=== PATIENT | male | born 1935 | race Caucasian/White ===

== ENCOUNTER 2018-09-22 01:27 | Emergency (ER) | payer MEDICARE, BC, SELFPAY ==
[2018-09-22 01:28] VITALS: BP 175/92; PULSE 91; RESP 18; TEMP 36.6; O2SAT 96; BMI 32.3
--- NOTE | 2018-09-22 01:39 | ED.RN ---
CALLED FOR EKG PER RN REQUEST, PULLED OLD EKGS FOR
--- NOTE | 2018-09-22 02:12 | RAD_ITS ---
STUDY: X-RAY CHEST REASON FOR EXAM: Male, 82 years old. Abdominal pain. TECHNIQUE: Single AP portable view of the chest. COMPARISON: September 22, 2018 FINDINGS: Cardiac monitoring leads are present. There is hyperinflation of the lungs consistent with chronic obstructive lung disease (COPD). There is no demonstrated pleural abnormality. Normal size heart. The opacity near the left cardiac silhouette at the left lung base is probably related to epicardial fat pad. Normal mediastinum and keerthi. Normal visualized pulmonary arteries. There is atherosclerotic calcification of the aortic arch with tortuosity. Normal visualized thoracic spine. Normal visualized ribs, clavicles, and shoulders. There is no demonstrated abnormality of the visualized soft tissue structures of the upper abdomen. RAD/Chest 1 View (Portable) IMPRESSION: No radiographic evidence of acute cardiopulmonary disease. Electronically Signed: Wendy Felix MD at 3:32 EST , Service support ,
--- NOTE | 2018-09-22 02:12 | EKG12_ITS ---
Test Reason : CP Blood Pressure : / mmHG Vent. Rate : 090 BPM Atrial Rate : 090 BPM P-R Int : 222 ms QRS Dur : 138 ms QT Int : 380 ms P-R-T Axes : 057 -71 059 degrees QTc Int : 464 ms Sinus rhythm with 1st degree A-V block with Premature atrial complexes Right bundle branch block Left anterior fascicular block Bifascicular block Abnormal ECG Confirmed by ANGELO TRIVEDI, KATELYN ([id number]), state editor ANTONIA GIBSON ([id number]) on 09/24/2018 9:10:38 AM Referred By: ERNIE Confirmed By:KATELYN STEPHENS MD
[2018-09-22 02:22] LABS: Absolute Lymphocyte Count 1.88 X10^3/ul (0.83-4.51); Absolute Neutrophil Count 4.5 X10^3/uL (2.0-7.7); Basophil# 0.03 X10^3/uL; Basophil% 0.4 % (0-1); Eosinophil# 0.17 X10^3/uL; Eosinophils% 2.2 % (0-5); Hematocrit 44.5 % (40-54); Hemoglobin 15.1 g/dl (13.0-16.5); Lymphocyte # 1.88 X10^3/ul (4.0); Lymphocyte % 23.9 % (19-41); Mean Corp Hgb Conc 33.9 g/gl (32-36); Mean Corpuscular Hgb 30.8 pg (27.0-32.0); Mean Corpuscular Volume 90.8 fL (80-94); Mean Platelet Vol. 10.7 fl (6.2-12.0); Monocyte# 1.24 X10^3/uL; Monocyte% 15.8 % (0-10); Neutrophil # 4.54 X10^3/uL (2.7-7.7); Neutrophil % 57.6 % (47-70); Platelet Count 259 K/mm3 (150-450); RBC Distribution Width SD 45.7 fl (35.1-43.9); White Blood Count 7.9 K/mm3 (4.4-11.0)
[2018-09-22 02:23] LABS: POSITIVE COUNT NO; POSITIVE DIFFERENTIAL NO; POSITIVE MORPHOLOGY NO
[2018-09-22] MEDS: Mag Hydrox/Al Hydrox/Simeth 30 ML UDC PO (02:32)
[2018-09-22 02:36] LABS: ALB/GLOB Ratio 1.1 RATIO (0.9-2.4); AST(SGOT) 17 U/L (15-37); Alanine Aminotransfer ALT/SGPT 25 U/L (16-61); Albumin, Serum 3.6 g/dL (3.2-5.0); Alkaline Phosphatase 104 U/L (45-117); Anion Gap 6 (5-15); BUN 18 mg/dL (7-18); BUN/Creat Ratio 13.5 RATIO (10-20); Calcium,Total 8.7 mg/dL (8.5-10.1); Chloride 107 mmol/L (98-107); Creatinine, Serum 1.33 mg/dL (0.70-1.30); EST Glomerular Filtration Rate 55 mL/min (>60); Est Glom Filt Rate - Afr Amer 66 mL/min (>60); Estimated Creatinine Clearance 40.71 ml/min; Globulin 3.4 g/dL (2.2-4.2); Glucose 123 mg/dL (74-106); Lipase 161 U/L (73-393); Sodium Level 139 mmol/L (136-145)
[2018-09-22 02:37] VITALS: BP 178/97; PULSE 89; RESP 16; O2SAT 97
[2018-09-22 03:18] VITALS: BP 138/77; PULSE 85; RESP 13; O2SAT 95
--- NOTE | 2018-09-22 04:17 | ED.DCSUM_ITS ---
History of Present Illness Chief Complaint: Abd Pain Informant: Patient, Family Onset: Today - several hrs Context: Sudden Onset - woke him up from sleep; was asymptomatic when he went to bed Timing: Continuous Quality: burning Location: epigast and lower mid-chest Current Severity: Mild Maximum Severity: Moderate Worsened by: lying down. nonexertional, nonpleuritic. Relieved by: sitting up Narrative: Patient states he has had these symptoms before, but he cannot recall when were the frequency. He denies any dyspnea, nausea/vomiting, melena, bright red blood per rectum, diarrhea. He denies any radiation of discomfort into his back, neck, arms, but does have some mild burning in his throat. He has no medical problems and takes no medications, and has not seen a doctor for several years. His daughter lives with him and was concerned about his symptoms and brought him to the emergency department tonight. He states it is not quite as bad right now, but he does still have some burning in his epigastrium. Daughter adds that he had a large banana split tonight. Past Medical History - Allergies and Home Meds Allergies/Adverse Reactions: Allergies No Known Allergies Allergy (Verified 09/22/18 01:31) Primary Care Physician: Aayush Guillen DO [Primary Care Provider] - Past Medical History: None Lives: With Family Smoking Status: Never smoker Review of Systems General: Denies: Chills, Fever, Sweats Eyes: Denies: Visual changes - bilaterally, Diplopia ENT: Denies: Sore throat Cardiovascular: Reports: Chest pain. Denies: Palpitations, Heart racing Respiratory: Denies: Dyspnea, Cough, Dyspnea on exertion Gastrointestinal: Reports: Abdominal pain. Denies: Nausea, Vomiting, Diarrhea, Melena, Hematochezia Genitourinary: Denies: Dysuria, Hematuria, Frequency Musculoskeletal: Denies: Back pain, Swelling, Extremity Pain Skin: Denies: Rash, Abscess, Wounds Neurological: Denies: Headache, Weakness, Numbness Psych: Denies: Depression, Anxiety Endocrine: Denies: Polyuria, Polydipsia Hematologic: Denies: Easy bruising, Easy bleeding Allergy: Denies: Swelling of the mouth, Swelling of the tongue Physical Exam Vital Signs/Narrative: Vital Signs Temp Pulse Resp BP Pulse Ox 09/22/18 03:18 85 13 138/77 H 95 09/22/18 02:37 89 16 178/97 H 97 09/22/18 01:28 97.9 F 91 18 175/92 H 96 Inital Vital Signs reviewed: Yes General: Well nourished, Well developed Head: Normocephalic, Atraumatic Eyes: Perrl, EOMI ENT: Moist mucous membranes, No rhinorrhea Neck: Supple, Nontender, No lymphadenopathy, No JVD Cardiovascular: Regular rate, Regular rhythm, No murmurs, Normal S1, Normal S2 Respiratory: No distress, CTA bilaterally, Chest nontender, - - No splinting on deep inspiration. Abdomen: Soft, Nondistended, Normal bowel sounds, Tender - Mild epigastrium only. Negative for: Guarding, Rebound tenderness, Schaefer's sign Back: Nontender, Normal Inspection Extremities: Nontender, No edema Skin: Normal color, No rash Neurological: Alert, Oriented x3, Cranial nerves II-XII grossly intact, Normal Strength, Normal Sensation Psychological: Normal affect Diagnostic/Tx/Re-eval Impressions Chest X-Ray 09/22/18 02:12 IMPRESSION: No radiographic evidence of acute cardiopulmonary disease. Electronically Signed: Wendy Felix MD at 3:32 EST , Service support , 09/22/18 02:12 Chest 1 View (Portable) [RAD] Stat Laboratory Results 09/22/18 09/22/18 01:38 01:38 WBC 7.9 RBC 4.90 Hgb 15.1 Hct 44.5 MCV 90.8 MCH 30.8 MCHC 33.9 RDW 14.0 RDW Differential 45.7 H Plt Count 259 MPV 10.7 Immature Gran % (Auto) 0.100 Neut % (Auto) 57.6 Lymph % (Auto) 23.9 [place] % (Auto) 15.8 H Eos % (Auto) 2.2 Baso % (Auto) 0.4 Absolute Neuts (auto) 4.5 Absolute Lymphs (auto) 1.88 Total Counted Not Reportable Sodium 139 Potassium 4.0 Chloride 107 Carbon Dioxide 26.0 Anion Gap 6 BUN 18 Creatinine 1.33 H Estim Creat Clear Calc 40.71 Est GFR (MDRD) Af Amer 66 Est GFR (MDRD) Non-Af 55 L BUN/Creatinine Ratio 13.5 Glucose 123 H Calcium 8.7 Total Bilirubin 0.30 AST 17 ALT 25 Alkaline Phosphatase 104 Troponin I < 0.015 Total Protein 7.0 Albumin 3.6 Globulin 3.4 Albumin/Globulin Ratio 1.1 Lipase 161 - Rhythm Strip Rhythm Strip: Sinus Rhythm Rate: 90 Ectopy: None - EKG Initial EKG Interpretation: Sinus Rhythm, No Acute Injury Pattern, RBBB, LAFB, AV Block - 1st deg Prior: Unchanged - Medical Decision Making Labs, chest x-ray unremarkable including negative troponin. His EKG is unchanged compared with his old showing a bifascicular block and no acute injury pattern or ectopy/dysrhythmia. Pre-existing first-degree AV block. He had some residual burning and epigastric tenderness, after a GI cocktail his discomfort is resolved. His symptoms are more consistent with reflux than angina. He does not want to stay in the hospital and wants to go home. I gave him a Protonix here and a prescription for more, and encouraged to follow-up with the PCP, or return if worse. He and daughter are comfortable with this plan. ED Disposition - Plan for ED Patient: Disposition: Home or Assisted Living Chief Complaint: Abd Pain Diagnosis: Chest pain, unspecified, Epigastric abdominal pain Instructions: ED Abdominal Pain Unkn Cause, ED GERD Prescriptions: Pantoprazole Sodium [Protonix] 40 mg PO DAILY #30 tablet Referrals: Aayush Guillen DO [Primary Care Provider] - 1 Week
[2018-09-22 04:40] VITALS: BP 139/87; PULSE 91; RESP 15; O2SAT 96
[2018-09-22] MEDS: Pantoprazole Sodium 40 MG Tablet PO (04:41)
== END 2018-09-22 04:44 | disposition home or self-care (01) ==
PROVIDERS: Emergency Provider Emergency Medicine; Family Provider Family Medicine; PCP Family Medicine
DX: R07.9 Chest pain, unspecified (principal); R10.13 Epigastric pain; I45.2 Bifascicular block
CPT/HCPCS: 71045; 80053; 83690; 84484; 85025; 93005; 99285; A4216

== ENCOUNTER 2019-10-15 15:59 | Emergency (ER) | payer MEDICARE, BC, SELFPAY ==
[2019-10-15 16:00] VITALS: BP 153/94; PULSE 88; RESP 16; TEMP 36.5; O2SAT 96; BMI 30.2
== END 2019-10-15 17:28 ==
PROVIDERS: Emergency Provider Emergency Medicine; PCP Family Medicine
DX: R10.9 Unspecified abdominal pain (principal)

== ENCOUNTER 2020-06-16 14:02 | Emergency (ER) | payer MEDICARE, BC, SELFPAY ==
[2020-06-01 14:14] VITALS: BMI 30.2
[2020-06-16 14:03] VITALS: BP 143/77; PULSE 70; RESP 17; TEMP 36.4; O2SAT 98; BMI 37.8
[2020-06-16 14:07] VITALS: BP 143/77; PULSE 70; RESP 17; TEMP 36.4; O2SAT 98
--- NOTE | 2020-06-16 14:29 | ED.VIS.GEN ---
History of Present Illness Chief Complaint: Nausea/Vomiting Informant: Patient, Family Narrative: 84-year-old male with no reported medical problems presents for evaluation. He states today in the morning he had an episode of diarrhea and had a second episode this afternoon. After the second episode of diarrhea he vomited. He states currently he has no nausea and he feels fine. He is not dizzy or lightheaded. He denies chest pain, palpitations, shortness of breath. He is not had fever, chills. He states prior to this he was eating and drinking normally. He lives with his daughter who states that he eats the same thing and there is no atypical foods. Past Medical History - Allergies and Home Meds Allergies/Adverse Reactions: Allergies No Known Allergies Allergy (Verified 06/16/20 14:08) Primary Care Physician: Aayush Guillen DO [Primary Care Provider] - Past Medical History: - - Patient denies medical problems Surgical History: noncontributory Lives: With Family Smoking Status: Unknown if ever smoked Alcohol: None Drugs: None Review of Systems General: Denies: Chills, Fever, Sweats Eyes: Denies: Visual changes - bilaterally, Diplopia ENT: Denies: Rhinorrhea, Sore throat Cardiovascular: Denies: Chest pain, Palpitations Respiratory: Denies: Dyspnea, Cough, Dyspnea on exertion Gastrointestinal: Reports: Nausea, Vomiting, Diarrhea. Denies: Abdominal pain, Constipation, Melena Genitourinary: Denies: Dysuria, Hematuria Musculoskeletal: Denies: Myalgias, Arthralgias Skin: Denies: Rash, Abrasions Neurological: Denies: Headache, Weakness, Parasthesia Physical Exam Vital Signs/Narrative: Vital Signs Temp Pulse Resp BP Pulse Ox 06/16/20 14:07 97.6 F L 70 17 143/77 H 98 06/16/20 14:03 97.6 F L 70 17 143/77 H 98 Inital Vital Signs reviewed: Yes General: Well nourished, No Acute Distress Head: Normocephalic, Atraumatic Eyes: Perrl, EOMI. Negative for: Scleral icterus ENT: Moist mucous membranes, No rhinorrhea Cardiovascular: Regular rate, Regular rhythm Respiratory: No distress, CTA bilaterally Abdomen: Soft, Nontender, Nondistended Extremities: Nontender, No edema Skin: Normal color, No rash Neurological: Alert, Oriented x3 Psychological: Normal affect, Normal Mood Diagnostic/Tx/Re-eval Laboratory Data 06/16/20 06/16/20 06/16/20 14:40 14:40 15:50 WBC 9.6 RBC 4.86 Hgb 14.9 Hct 44.4 MCV 91.4 MCH 30.7 MCHC 33.6 RDW Std Deviation 47.3 H RDW Coeff of Kristy 13.9 Plt Count 245 MPV 10.6 Immature Gran % (Auto) 0.200 Neut % (Auto) 78.7 H Lymph % (Auto) 12.7 L [place] % (Auto) 7.6 Eos % (Auto) 0.4 Baso % (Auto) 0.4 Absolute Neuts (auto) 7.6 Absolute Lymphs (auto) 1.22 Nucleated RBC % 0 Sodium 140 Potassium 4.2 Chloride 108 H Carbon Dioxide 27.0 Anion Gap 5 BUN 15 Creatinine 1.38 H Estim Creat Clear Calc 32.77 Est GFR (MDRD) Af Amer 63 Est GFR (MDRD) Non-Af 52 L BUN/Creatinine Ratio 10.9 Glucose 96 Calcium 9.2 Total Bilirubin 0.50 AST 17 ALT 22 Alkaline Phosphatase 88 Total Protein 7.6 Albumin 3.8 Globulin 3.8 Albumin/Globulin Ratio 1.0 Urine Color Yellow Urine Clarity Clear Urine pH 7.0 Ur Specific [place] 1.010 Urine Protein 15 H Urine Glucose (UA) Normal Urine Ketones 15 H Urine Occult Blood 10 H Urine Nitrite Negative Urine Bilirubin Negative Urine Urobilinogen Normal Ur Leukocyte Esterase 25 H - Medical Decision Making Patient presents with a couple episodes of diarrhea as well as one episode of nausea and vomiting. His physical exam is benign. He requires no antiemetics in the ED. He has not had any diarrhea while he is here. His blood work is at his baseline. I do not believe he needs any further imaging. He will be given Zofran for home. Impression: 1. Nausea vomiting 2. Diarrhea ED Disposition - Plan for ED Patient: Disposition: Home or Assisted Living Instructions: ED Diet for Vomiting or Diarrhea Adult Prescriptions: Ondansetron [Ondansetron Odt] 4 mg PO Q8H PRN PRN #[id number] tab.rapdis PRN Reason: Nausea Transmission Status: Received by [id number] Referrals: Aayush Guillen DO [Primary Care Provider] -
[2020-06-16 14:59] LABS: Absolute Lymphocyte Count 1.22 X10^3/uL (0.83-4.51); Absolute Neutrophil Count 7.6 X10^3/uL (2.0-7.7); Basophil# 0.04 X10^3/uL; Basophil% 0.4 % (0-1); Eosinophil# 0.04 X10^3/uL; Eosinophils% 0.4 % (0-5); Hematocrit 44.4 % (40-54); Hemoglobin 14.9 g/dL (13.0-16.5); Lymphocyte # 1.22 X10^3/ul (4.0); Lymphocyte % 12.7 % (19-41); Mean Corp Hgb Conc 33.6 g/dL (32-36); Mean Corpuscular Hgb 30.7 pg (27.0-32.0); Mean Corpuscular Volume 91.4 fL (80-94); Mean Platelet Vol. 10.6 fl (6.2-12.0); Monocyte# 0.73 X10^3/uL; Monocyte% 7.6 % (0-10); NRBC Flagged by Analyzer 0 % (0-5); Neutrophil # 7.56 X10^3/uL (2.7-7.7); Neutrophil % 78.7 % (47-70); Platelet Count 245 K/mm3 (150-450); RBC Distribution Width CV 13.9 % (11.6-14.6); RBC Distribution Width SD 47.3 fl (35.1-43.9); Red Blood Count 4.86 M/mm3 (4.6-6.2); White Blood Count 9.6 K/mm3 (4.4-11.0)
[2020-06-16 15:07] VITALS: BP 125/71; PULSE 75; RESP 14; TEMP 36.4; O2SAT 94
[2020-06-16 15:20] LABS: AST(SGOT) 17 U/L (15-37); Alanine Aminotransfer ALT/SGPT 22 U/L (16-61); Albumin, Serum 3.8 g/dL (3.2-5.0); Alkaline Phosphatase 88 U/L (45-117); Anion Gap 5 (5-15); BUN 15 mg/dL (7-18); BUN/Creat Ratio 10.9 RATIO (10-20); Calcium,Total 9.2 mg/dL (8.5-10.1); Chloride 108 mmol/L (98-107); Creatinine, Serum 1.38 mg/dL (0.70-1.30); EST Glomerular Filtration Rate 52 mL/min (>60); Est Glom Filt Rate - Afr Amer 63 mL/min (>60); Estimated Creatinine Clearance 32.77 ml/min; Globulin 3.8 g/dL (2.2-4.2); Glucose 96 mg/dL (74-106); Potassium 4.2 mmol/L (3.5-5.1); Protein, Total 7.6 g/dL (6.4-8.2); Sodium Level 140 mmol/L (136-145)
[2020-06-16 16:19] LABS: Color, Urine Yellow (Yellow); Glucose, Dipstick Normal (Normal); Ketone-Dipstick 15 mg/dl (Negative); Leukocyte Esterase-Dipstick 25 /ul (Negative); Nitrite-Dipstick Negative (Negative); Occult Blood-Urine 10 /ul (Negative); Protein-Dipstick 15 mg/dl (Negative); Urine Bilirubin Dipstick Negative (Negative); Urine Clarity Clear (Clear); Urine Urobilinogen Normal (Normal)
[2020-06-16 16:33] VITALS: BP 130/69; PULSE 72; RESP 13; TEMP 36.4; O2SAT 97
== END 2020-06-16 17:02 | disposition home or self-care (01) ==
PROVIDERS: Emergency Provider Student in an Organized Health Care Education/Training Program; PCP Family Medicine
DX: R11.2 Nausea with vomiting, unspecified (principal); R19.7 Diarrhea, unspecified
CPT/HCPCS: 80053; 81002; 85025; 99285; J7030; J7040; A4216

== ENCOUNTER 2020-10-07 10:53 | Outpatient (RCR) | payer MEDICARE, BC, SELFPAY | END 2020-10-07 23:59 | LOC: IMMUN 10:53 | PROVIDERS: PCP Family Medicine; Visit Provider Family Medicine | DX: Z23 Encounter for immunization (principal) | CPT/HCPCS: 0011A; 0012A; 91301 ==

== ENCOUNTER 2021-09-26 09:27 | Emergency (ER) | payer MEDICARE, BC, SELFPAY ==
[2021-09-26 09:28] VITALS: BP 147/95; PULSE 91; RESP 18; TEMP 36.1; O2SAT 100; BMI 36.6
--- NOTE | 2021-09-26 10:18 | EKG12_ITS ---
Test Reason : CP Blood Pressure : / mmHG Vent. Rate : 084 BPM Atrial Rate : 084 BPM P-R Int : 206 ms QRS Dur : 130 ms QT Int : 398 ms P-R-T Axes : 055 -52 023 degrees QTc Int : 470 ms Normal sinus rhythm Right bundle branch block Left anterior fascicular block Bifascicular block Abnormal ECG Confirmed by MICHAEL TRIVEDI, MELO ([id number]), photographic editor BARBARA CASEY ([id number]) on 09/27/2021 1:55:13 PM Referred By: JAY/MAGDA Confirmed By:MELO RODRIGUEZ MD
== END 2021-09-26 10:00 | disposition left against medical advice (07) ==
LOC: ED 10:03
PROVIDERS: PCP Family Medicine
DX: R07.9 Chest pain, unspecified (principal)
CPT/HCPCS: 93005; 99291